=== PATIENT | male | born 1990 | race Caucasian/White ===

== ENCOUNTER 2022-06-17 22:03 | Emergency (ER) | payer SELFPAY ==
[~2022-06-17] VITALS: Ht 172.7 cm; Wt 81.6 kg
--- NOTE | 2022-06-17 22:03 | NUR ---
PT BIB [facility], PREBOOK. TAKEN TO CHAIR
[2022-06-17 22:06] VITALS: BP 141/102
--- NOTE | 2022-06-17 23:06 | NUR ---
Dr. Daly examining patient.
[2022-06-17 23:31] VITALS: BP 135/96
--- NOTE | 2022-06-17 23:31 | NUR ---
Patient D/C to custody.
== END 2022-06-17 23:31 | disposition home or self-care (01) ==
LOC: MED 22:03
DX: F10.10 Alcohol abuse, uncomplicated (principal); F17.200 Nicotine dependence, unspecified, uncomplicated; Z02.89 Encounter for other administrative examinations; V89.2XXA Person injured in unspecified motor-vehicle accident, traffic, initial encounter; Y93.89 Activity, other specified; Y92.89 Other specified places as the place of occurrence of the external cause; Y99.8 Other external cause status
CPT/HCPCS: 99283